=== PATIENT | female | born 1960 | race Caucasian/White ===

== ENCOUNTER → 2017-04-17 | Outpatient (CLI) | payer BC | LOC: BRMIMAGING 16:06 | PROVIDERS: ATTEND Physician Assistant | DX: M25.841 Other specified joint disorders, right hand (principal) | CPT/HCPCS: 73140-PO ==

== ENCOUNTER → 2017-07-26 | Outpatient (CLI) | payer BC | LOC: BRMIMAGING 12:54 | PROVIDERS: ATTEND Family Medicine | DX: Z12.31 Encounter for screening mammogram for malignant neoplasm of breast (principal) | CPT/HCPCS: G0202 ==

== ENCOUNTER → 2018-12-14 | Outpatient (CLI) | payer BC | LOC: BRMIMAGING 14:35 | PROVIDERS: ATTEND Physician Assistant Medical | DX: Z12.31 Encounter for screening mammogram for malignant neoplasm of breast (principal) ==